=== PATIENT | female | born 1930 | race Caucasian/White ===

== ENCOUNTER 2017-09-04 15:16 | Inpatient (IN) | payer MEDICARE, MEDICAID ==
[~2017-09-04] VITALS: Ht 160 cm; Wt 86.0 kg
--- NOTE | 2017-09-04 15:20 | NUR ---
ESTHELA FROM [facility], C/O PLEURITIC PAIN, CHILLS, WEAKNESS, FEVER 100.3 ORALLY NAD NOTED, VSS, RESP EVEN AND UNLABORED, PT WAS PUT ON MONITOR. WAITING FOR MD MOSES.
[2017-09-04] MEDS ORDERED: ESCI5TAB PO (15:30)
[2017-09-04] MEDS ORDERED: INSU100V7 SQ (15:30)
[2017-09-04] MEDS ORDERED: BLOO-668 IN (15:30)
[2017-09-04] MEDS ORDERED: INSU100V11 SQ (15:30)
[2017-09-04] MEDS ORDERED: SIMV40TA5 PO (15:30)
[2017-09-04] MEDS ORDERED: FAMO20TA8 PO (15:30)
[2017-09-04] MEDS ORDERED: METO25TA6 PO (15:30)
[2017-09-04] MEDS ORDERED: LORA0.5T PO (15:30)
[2017-09-04] MEDS ORDERED: VALS80TA2 PO (15:30)
[2017-09-04] MEDS ORDERED: GLIP5TAB13 PO (15:30)
[2017-09-04] MEDS ORDERED: SPIR25TA6 PO (15:30)
[2017-09-04] MEDS ORDERED: FURO-144 PO (15:30)
[2017-09-04 15:56] LABS: CALCIUM, SERUM 8.9 mg/dL (8.5-10.1); CARBON DIOXIDE 22 mmol/L (21-32); CHLORIDE 105 mmol/L (98-107); CREATININE 2.2 mg/dL (0.6-1.3); GLUCOSE 98 mg/dL (74-106); POTASSIUM 4.6 mmol/L (3.5-5.1); SODIUM SERUM 138 mmol/L (136-145); UREA NITROGEN, BLOOD 30 mg/dL (7-18)
[2017-09-04 16:00] LABS: INR 0.92 (0.85-1.15)
[2017-09-04] MEDS ORDERED: IV NS 0.9% 1,000 ML BAG IV ONE ×2 (16:00→16:30)
[2017-09-04 16:02] LABS: ALANINE AMINOTRANSFERASE 20 U/L (12-78); ALBUMIN 3.4 g/dL (3.4-5.0); ALKALINE PHOSPHATASE 60 U/L (46-116); ASPARTATE AMINOTRANSFERASE 30 U/L (15-37); BILIRUBIN,DIRECT 0.3 mg/dL (0.0-0.2); BILIRUBIN,TOTAL 0.7 mg/dL (0.2-1.0); TOTAL PROTEIN, SERUM 7.3 g/dL (6.4-8.2)
[2017-09-04 16:04] LABS: TROPONIN I < 0.017 ng/mL (0.00-0.056)
[2017-09-04 16:11] LABS: BASOPHILS % (AUTO) 0.3 % (0.0-2.0); EOSINOPHILS % (AUTO) 0.2 % (0.0-6.0); HEMATOCRIT 36 % (33-45); HEMOGLOBIN 12.3 g/dL (11.5-14.8); LYMPHOCYTES # (AUTO) 0.9 /CMM (0.8-4.8); LYMPHOCYTES % (AUTO) 16.7 % (20.0-44.0); MEAN CORPUSCULAR HGB CONC 34 g/dl (31.0-36.0); MEAN CORPUSCULAR VOLUME 91 fL (82-100); MONOCYTES # (AUTO) 0.5 /CMM (0.1-1.30); MONOCYTES % (AUTO) 9.8 % (2.0-12.0); NEUTROPHILS # (AUTO) 3.7 /CMM (1.8-8.9); PLATELET COUNT (AUTO) 73 /CMM (150-450); RDW COEFFICIENT OF VARIATION 15.1 (11.5-15.0); RED BLOOD CELL COUNT(AUTO) 3.96 MIL/uL (4.0-5.2); WHITE BLOOD COUNT (AUTO) 5.1 K/uL (4.3-11.0)
[2017-09-04] MEDS ORDERED: ACETAMINOPHEN ES 500 MG TABLET ONE (16:21)
[2017-09-04] MEDS ORDERED: ACETAMINOPHEN 325 MG TABLET PO ONE (16:30)
--- NOTE | 2017-09-04 17:03 | NUR ---
CALLED [employer] FOR BEDSIDE COMMODE.
[2017-09-04 17:22] LABS: APPEARANCE,URINE Clear (CLEAR); BILIRUBIN,URINE Negative (NEGATIVE); BLOOD, URINE Small Ery/uL (NEGATIVE); COLOR,URINE Yellow (YELLOW); KETONES,URINE Trace (NEGATIVE); LEUKOCYTE ESTERASE ,URINE Trace (NEGATIVE); NITRITE, URINE Negative (NEGATIVE); PROTEIN,URINE 100 mg/dl (NEGATIVE); UGLUCOSE Negative (NEGATIVE); UROBILINOGEN,URINE 0.2 EU/dL (0.2)
--- NOTE | 2017-09-04 17:22 | NUR ---
URINE SENT TO LAB
[2017-09-04 17:35] LABS: BACTERIA,URINE Moderate /HPF (None Seen); SQUAMOUS EPITHELIAL CELL,UR Moderate /HPF (None Seen)
--- NOTE | 2017-09-04 17:39 | NUR ---
FLU SWAB SENT TO LAB
--- NOTE | 2017-09-04 18:00 | NUR ---
FIRE CLAIMS ADJUSTER NOTES PATIENT A/OX4, BREATHING EVEN AND UNLABORED, NOTED WITH NON-PRODUCTIVE COUGH BUT NO SOB. SKIN ASSESSMENT COMPLETED, SKIN DRY AND INTACT, PIV ON LEFT AC #20, PATIENT ABLE TO AMBULATE WITH ASSIST, PATIENT FEELING WEAKER THAN NORMAL, ON TELE MONITOR WHICH SHOWS SINUS RHYTHM 74, PATIENT'S NEEDS ATTENDED AND MET, CALL LIGHT WITHIN REACH, WILL ENDORSE TO MANAGER NUCLEAR FOR DAVID.
[2017-09-04] MEDS ORDERED: MAG HYDROX/AL HYDROX/SIMETH 30 ML UDC PO PRN (18:30)
[2017-09-04] MEDS ORDERED: ACETAMINOPHEN 325 MG TABLET PO PRN (18:30)
[2017-09-04] MEDS ORDERED: HYDROCODONE/APAP 5/325MG 1 EACH TABLET PO PRN (18:30)
[2017-09-04] MEDS ORDERED: DEXTROSE 50%-WATER 50 ML DISP.SYRIN IV PRN (18:30)
[2017-09-04] MEDS ORDERED: CEFTRIAXONE 1 G in IV NS 0.9% 50 ML IV SCH (18:30)
[2017-09-04] MEDS ORDERED: IV 1/2NS 1000 ML 1,000 ML IV SCH (18:30)
[2017-09-04] MEDS ORDERED: MAGNESIUM HYDROXIDE 30 ML UDC PO PRN (18:30)
[2017-09-04] MEDS ORDERED: CEFTRIAXONE 1GM BAG (ER ONLY) 1 GM/50 ML PIGGYBACK IV ONE (18:30)
[2017-09-04] MEDS ORDERED: Z GUARD REMEDY 2 OZ OINT TP PRN (18:30)
[2017-09-04] MEDS ORDERED: ONDANSETRON HCL/PF 4 MG/2 ML VIAL IVP PRN (18:30)
--- NOTE | 2017-09-04 19:23 | NUR ---
RN NOTES INFORMED [place] FOOD SANITARIAN, PATIENT'S PLATELET IS 73, CLARIFIED IF LOVENOX IS TO BE GIVEN, PER FOOD SANITARIAN, DISCONTINUE MEDICATION. PATIENT IS AMBULATORY AND INDEPENDENT WITH BED MOBILITY. ORDER NOTED AND CARRIED OUT.
--- NOTE | 2017-09-04 19:30 | NUR ---
RN NOTES: RECEIVED ASLEEP ON BED ,A/OX3-4,PER ENDORSEMENT PATIENT IS NO LONGER IN TELE, MONITOR REMOVED,IV LINE ON LAC g#20 WITH 0.45%NS ONGOING AT 50ML/HR, LOVENOX WAS DISCONTINUE,AND ROCEPHINE TO BE GIVEN.KEPT RESTED, FALL,SAFETY ANDASPIRATION PRECAUTION OBSERVED, BED LOW AND LOCKED, CALL LIGHT WITHIN EASY REACH.
[2017-09-04 20:00] VITALS: BP 99/52
[2017-09-04] MEDS ORDERED: ENOXAPARIN SODIUM 30 MG/0.3 ML DISP.SYRIN SQ SCH (20:00)
--- NOTE | 2017-09-04 20:10 | NUR ---
RN NOTES: ROCEPHINE DELIVERED FROM PHARMACY, GIVEN AT 1948.PATIENT WAS ASLEEP, KEPT MONITORED, AWAKE IN BETWEEN TO USE THE BATHROOM, SHE CLAIMED"I FEEL MUCH BETTER NOW".
[2017-09-04] MEDS: SIMVASTATIN 40 MG TABLET PO SCH (21:42)
[2017-09-04] MEDS: BLOOD SUGAR DIAGNOSTIC 1 EACH STRIP VI SCH (21:43)
[2017-09-04] MEDS: FAMOTIDINE (20 MG) 20 MG TABLET PO SCH (21:43)
--- NOTE | 2017-09-04 21:51 | NUR ---
RN NOTES: BLOOD SUGAR CHECKED-98,NO INSULIN GIVEN PER SCALE, DUE ORAL MEDS GIVEN,TOLERATED; GO BACK TO SLEEP, KEPT RESPTED, NO SIGN OF SOB OR RESPIRATORY DISTRESS NOTED.
[2017-09-04] MEDS: INSULIN GLARGINE, 100 UNIT/ML CARTRIDGE SQ SCH (22:00)
[2017-09-05] VITALS: BP 111/50
--- NOTE | 2017-09-05 00:47 | NUR ---
RN NOTES: SLEEP WELL IN THE NIGHT, NO PAIN OR DISCOMFORT, NO COUGHING NOTED, V/S CHECKED BP-100/50 SPO2-96% ROOM AIR.KEPT ON CLOSE WATCH.
--- NOTE | 2017-09-05 02:22 | NUR ---
RN NOTES: AWAKE,ASSISTED GOING TO THE BATHROOM, SHE URINATE WELL,NO COMPLAINTS,KEPT COMFORTABLE IN BED.CALL LIGHT WITHIN EASY REACH.
--- NOTE | 2017-09-05 05:55 | NUR ---
RN NOTES: BLOOD SUGAR CHECKED-75, NO INSULIN GIVEN PER SCALE,WILL CONTINUE TO MONITOR FOR SIGN OF HYPER/HYPOGLYCEMIA,OFFERED JUICE, SHE JUST DRINK WATER AND GO BACK TO SLEEP,IVF STILL ONGOING.CALL LIGHTWITHIN EASY REACH.
--- NOTE | 2017-09-05 06:24 | NUR ---
RN NOTES: ASLEEP ON BED,WITH IVF ONGOING, BED LOW AND LOCKED, CALL LIGHT WITHIN EASY REACH,NO SIGN OR RESPIRATORY DEPRESSION.ENDORSED TO MORNING SHIFT FOR CONTINUITY OF CARE.
[2017-09-05 06:49] LABS: BASOPHILS % (AUTO) 0.3 % (0.0-2.0); EOSINOPHILS % (AUTO) 1.7 % (0.0-6.0); HEMATOCRIT 32 % (33-45); HEMOGLOBIN 10.9 g/dL (11.5-14.8); LYMPHOCYTES # (AUTO) 1.2 /CMM (0.8-4.8); LYMPHOCYTES % (AUTO) 24.3 % (20.0-44.0); MEAN CORPUSCULAR HGB CONC 34 g/dl (31.0-36.0); MEAN CORPUSCULAR VOLUME 94 fL (82-100); MONOCYTES # (AUTO) 0.5 /CMM (0.1-1.30); NEUTROPHILS # (AUTO) 3.1 /CMM (1.8-8.9); NEUTROPHILS % (AUTO) 62.7 % (43.0-81.0); PLATELET COUNT (AUTO) 68 /CMM (150-450); RDW COEFFICIENT OF VARIATION 15.2 (11.5-15.0); RED BLOOD CELL COUNT(AUTO) 3.46 MIL/uL (4.0-5.2); WHITE BLOOD COUNT (AUTO) 4.9 K/uL (4.3-11.0)
[2017-09-05] MEDS: BLOOD SUGAR DIAGNOSTIC 1 EACH STRIP VI SCH ×4 (06:50→21:43)
[2017-09-05] MEDS: INSULIN REGULAR, HUMAN 100 UNIT/ML 3 ML VIAL SQ PRN (06:51)
[2017-09-05 06:59] LABS: CALCIUM, SERUM 7.8 mg/dL (8.5-10.1); CARBON DIOXIDE 24 mmol/L (21-32); CHLORIDE 106 mmol/L (98-107); CREATININE 1.9 mg/dL (0.6-1.3); GLUCOSE 69 mg/dL (74-106); MAGNESIUM 2.1 mg/dL (1.8-2.4); PHOSPHORUS 3.2 mg/dL (2.5-4.9); POTASSIUM 4.4 mmol/L (3.5-5.1); SODIUM SERUM 139 mmol/L (136-145); UREA NITROGEN, BLOOD 28 mg/dL (7-18)
[2017-09-05 07:11] LABS: CHOLESTEROL 104 mg/dL (<200); HDL CHOLESTEROL 32 mg/dL (40-60); LDL 59 mg/dL (0-99); TRIGLYCERIDES 112 mg/dL (30-150)
--- NOTE | 2017-09-05 07:30 | NUR ---
RN NOTES: PATIENT RESTING IN BED. NONLABORED BREATHING NOTED ON ROOM AIR. DENYING PAIN AT THE MOMENT. IV SITE ON LEFT AC PATENT AND INTACT. PATIENT AOX4. IV FLUIDS HELD AT THE MOMENT PER LOUIS Chamberlain NP'S NOTES.PATIENT OFFERED APPLE JUICE, IS DRINKING IT AT THE MOMENT. BED IN LOWEST LOCKED POSITION. CALL LIGHT WITHIN REACH.
[2017-09-05 08:00] VITALS: BP 115/55
[2017-09-05 08:34] LABS: EOSINOPHILS % (MANUAL) 3 % (0-4); LYMPHOCYTES % (MANUAL) 29 % (16-48); MONOCYTES % (MANUAL) 11 % (0-11.0); NEUTROPHILS % (MANUAL) 57 (42-76)
[2017-09-05] MEDS: METOPROLOL TARTRATE 25 MG TABLET PO SCH ×2 (09:00→16:48)
[2017-09-05] MEDS ORDERED: SPIRONOLACTONE 25 MG TABLET PO SCH (09:00)
[2017-09-05] MEDS: VALSARTAN 80 MG TABLET PO SCH (09:00)
[2017-09-05] MEDS: PANTOPRAZOLE 40 MG VIAL IV SCH (09:09)
[2017-09-05] MEDS: FUROSEMIDE 40 MG TABLET PO SCH (09:15)
[2017-09-05] MEDS: ESCITALOPRAM OXALATE (10 MG) 10 MG TABLET PO SCH (09:17)
--- NOTE | 2017-09-05 09:20 | NUR ---
PATIENT REFUSING ALDACTONE. STATES THAT SHE WANTS TO ONLY TAKE LASIX. BENEFITS AND RISKS EXPLAINED TO PATIENT.PATIENT STILL REFUSING
[2017-09-05] MEDS ORDERED: FOSFOMYCIN TROMETHAMINE 3 G/PKT PACKET PO ONE (11:00)
[2017-09-05] MEDS: IV NS 0.9% 1,000 ML IV SCH ×2 (11:08→15:40)
--- NOTE | 2017-09-05 11:44 | NUR ---
PATIENT REPORTS BEING ALLERGIC TO MILK AND FISH., UNKNOWN REACTIONS. PER PATIENT, NO ALLERGIC REACTIONS WHEN TAKING METOPROLOL AND LASIX
--- NOTE | 2017-09-05 11:47 | NUR ---
PATIENT DENIES ANY ALLERGIC REACTIONS TO PEPCID
[2017-09-05 12:00] VITALS: BP 104/52
[2017-09-05 16:00] VITALS: BP 120/54
--- NOTE | 2017-09-05 19:37 | NUR ---
RN CLOSING NOTES: PATIENT RESTING IN BED. NONLABORED BREATHING NOTED ON ROOM AIR. DENIES PAIN AT THE MOMENT. IV SITE PATENT AND INTACT WITH CURRENT FLUIDS RUNNING PER ORDERS. COLLECTED STOOL FOR OCCULT STOOL CHECK AND CALLED LAB. BED IN LOWEST LOCKED POSITION. CALL LIGHT WITHIN REACH. ENDORSED TO NEXT SHIFT
--- NOTE | 2017-09-05 19:38 | NUR ---
Patient is alert and pleasant. She resides at the [facility] [phone]. She requires min assist with adl's. Primary source of support are the [facility] staff. Current plan is to return to [facility] Addendum: 09/05/17 at 1939 by PAUL LOU RN Amended: Links added.
--- NOTE | 2017-09-05 19:39 | NUR ---
MS/RN OPENING NOTES PT RECEIVED AWAKE, SITTING UP IN BED. ON ROOM AIR, BREATHING EVEN AND UNLABORED. DENIES SOB OR PAIN AT THIS TIME. IV TO LAC PATENT AND INTACT RUNNING IVF ORDERED, 2ND BAG HANGING (ORDER FOR 2,000ML ONLY). PENDING RESULT FOR LLE DUPLEX. BED IN LOW/LOCKED POSITION WITH CALL LIGHT IN REACH. SIDE RAILS UPX2. WILL CONTINUE TO MONITOR
[2017-09-05 20:00] VITALS: BP 129/68
--- NOTE | 2017-09-05 21:34 | NUR ---
MS/RN NOTES ASSISTED PT TO RESTROOM. IV TO LAC INFILTRATED. RESTARTED IV TO RIGHT HAND #24. FLUSHES WELL. RECONNECTED TO IVF
[2017-09-05] MEDS: SIMVASTATIN 40 MG TABLET PO SCH (21:42)
[2017-09-05] MEDS: FAMOTIDINE (20 MG) 20 MG TABLET PO SCH (21:42)
[2017-09-05] MEDS: INSULIN GLARGINE, 100 UNIT/ML CARTRIDGE SQ SCH (21:50)
[2017-09-05] MEDS: *INSULIN REGULAR(HUMULIN R)HUM 100 UNIT/ML VIAL SQ PRN (21:51)
--- NOTE | 2017-09-05 22:02 | NUR ---
MS/RN NOTES BLOOD [id number]. REFUSING SCHEDULED LANTUS AND REGULAR INSULIN. DIDNT EAT MUCH OF HER DINNER AND HAS NO APPETITE AT THIS TIME.
[2017-09-06 00:07] LABS: OCCULT BLOOD STOOL NEGATIVE (NEGATIVE)
[2017-09-06] MEDS: BLOOD SUGAR DIAGNOSTIC 1 EACH STRIP VI SCH ×4 (06:36→21:06)
[2017-09-06] MEDS: INSULIN REGULAR, HUMAN 100 UNIT/ML 3 ML VIAL SQ PRN ×2 (06:37→11:55)
--- NOTE | 2017-09-06 07:10 | NUR ---
RN NOTES: PATIENT RESTING IN BED. NONLABORED BREATHING NOTED ON ROOM AIR. DENYING PAIN AT THE MOMENT. IV SITE ON RIGHT WRIST PATENT AND INTACT. PATIENT AOX4. BED IN LOWEST LOCKED POSITION. CALL LIGHT WITHIN REACH.
--- NOTE | 2017-09-06 07:40 | NUR ---
MS/RN CLOSING NOTES PT AWAKE, RESTING IN BED. A/OX4. ON ROOM AIR, BREATHING EVEN AND UNLABORED. DENIES PAIN OR SOB AT THIS TIME. IV TO RIGHT HAND PATENT AND INTACT. BLOOD SUGAR THIS AM= 151, PT REFUSED INSULIN. EDUCATION PROVIDED X3, PT STILL REFUSING. DUPLEX FOR LLE NEGATIVE FOR DVT. NO SIGNIFICANT CHANGES OVERNIGHT. KEPT PT COMFORTABLE DURING SHIFT. ALL NEEDS MET. BED IN LOW/LOCKED POSITION WITH CALL LIGHT IN REACH. SIDE RAILS UPX2. ENDORSED TO DAY SHIFT RN DAVID.
[2017-09-06 07:43] LABS: BASOPHILS % (AUTO) 0.3 % (0.0-2.0); EOSINOPHILS % (AUTO) 3.6 % (0.0-6.0); HEMATOCRIT 33 % (33-45); HEMOGLOBIN 11.1 g/dL (11.5-14.8); LYMPHOCYTES # (AUTO) 1.5 /CMM (0.8-4.8); LYMPHOCYTES % (AUTO) 35.2 % (20.0-44.0); MEAN CORPUSCULAR HGB CONC 34 g/dl (31.0-36.0); MEAN CORPUSCULAR VOLUME 92 fL (82-100); MONOCYTES # (AUTO) 0.5 /CMM (0.1-1.30); MONOCYTES % (AUTO) 12.1 % (2.0-12.0); NEUTROPHILS # (AUTO) 2.1 /CMM (1.8-8.9); NEUTROPHILS % (AUTO) 48.8 % (43.0-81.0); PLATELET COUNT (AUTO) 73 /CMM (150-450); RDW COEFFICIENT OF VARIATION 14.3 (11.5-15.0); RED BLOOD CELL COUNT(AUTO) 3.59 MIL/uL (4.0-5.2); WHITE BLOOD COUNT (AUTO) 4.3 K/uL (4.3-11.0)
[2017-09-06 08:00] VITALS: BP 129/52
[2017-09-06 08:36] LABS: CALCIUM, SERUM 7.9 mg/dL (8.5-10.1); CARBON DIOXIDE 18 mmol/L (21-32); CHLORIDE 106 mmol/L (98-107); CREATININE 1.8 mg/dL (0.6-1.3); GLUCOSE 131 mg/dL (74-106); MAGNESIUM 1.9 mg/dL (1.8-2.4); PHOSPHORUS 2.9 mg/dL (2.5-4.9); SODIUM SERUM 138 mmol/L (136-145); UREA NITROGEN, BLOOD 28 mg/dL (7-18)
[2017-09-06] MEDS: METOPROLOL TARTRATE 25 MG TABLET PO SCH ×2 (09:00→17:00)
[2017-09-06] MEDS: VALSARTAN 80 MG TABLET PO SCH (09:00)
[2017-09-06] MEDS: PANTOPRAZOLE 40 MG VIAL IV SCH (09:10)
[2017-09-06] MEDS: ESCITALOPRAM OXALATE (10 MG) 10 MG TABLET PO SCH (09:16)
[2017-09-06] MEDS: FUROSEMIDE 40 MG TABLET PO SCH (09:16)
[2017-09-06 10:44] LABS: BAND % (MANUAL) 2 % (0.0-5.0); EOSINOPHILS % (MANUAL) 4 % (0-4); LYMPHOCYTES % (MANUAL) 31 % (16-48); MONOCYTES % (MANUAL) 11 % (0-11.0); NEUTROPHILS % (MANUAL) 52 (42-76)
--- NOTE | 2017-09-06 17:10 | NUR ---
PATIENT REFUSING INSULIN PER PROTOCOL PRIOR TO DINNER WELL METOPROLOL. BENEFITS AND RISKS EXPLAINED TO PATIENT .PATIENT STILL REFUSING
--- NOTE | 2017-09-06 18:26 | NUR ---
RN CLOSING NOTES: PATIENT RESTING IN BED. NONLABORED BREATHING NOTED ON ROOM AIR. DENIES PAIN AT THE MOMENT. IV SITE PATENT AND INTACT ON RIGHT WRIST. BED IN LOWEST LOCKED POSITION. CALL LIGHT WITHIN REACH. ENDORSED TO NEXT SHIFT. PATIENT STABLE THROUGHOUT SHIFT WITH NO CHANGES. WILL ENDORSE TO NEXT NURSE
--- NOTE | 2017-09-06 19:30 | NUR ---
MS/RN OPENING NOTES PT RECEIVED AWAKE. A/OX4. ON ROOM AIR,BREATHING EVEN AND UNLABORED. DENIES SOB OR PAIN AT THIS TIME. IV TO RIGHT HAND PATENT AND INTACT. ASSISTED TO RESTROOM. ESCORTED BACK TO BED. BED IN LOW/LOCKED POSITION WITH CALL LIGHT IN REACH. SIDE RAILS UPX2. WILL CONTINUE TO MONITOR
[2017-09-06 20:00] VITALS: BP 140/60
[2017-09-06] MEDS: SIMVASTATIN 40 MG TABLET PO SCH (21:06)
[2017-09-06] MEDS: FAMOTIDINE (20 MG) 20 MG TABLET PO SCH (21:07)
[2017-09-06] MEDS: INSULIN GLARGINE, 100 UNIT/ML CARTRIDGE SQ SCH (21:11)
[2017-09-06] MEDS: *INSULIN REGULAR(HUMULIN R)HUM 100 UNIT/ML VIAL SQ PRN (21:14)
--- NOTE | 2017-09-06 21:15 | NUR ---
MS/RN NOTES BLOOD KGOLE=438. WANTS SCHEDULED LANTUS BUT REFUSING REGULAR INSULIN AT THIS TIME. SNACKS PROVIDED AT BEDSIDE. ALSO REFUSING SCHEDULE PEPCID. EDUCATION PROVIDED, STILL REFUSING.
[2017-09-07] MEDS: BLOOD SUGAR DIAGNOSTIC 1 EACH STRIP VI SCH ×2 (06:41→12:37)
[2017-09-07] MEDS: INSULIN REGULAR, HUMAN 100 UNIT/ML 3 ML VIAL SQ PRN ×2 (06:42→12:37)
--- NOTE | 2017-09-07 06:57 | NUR ---
MS/RN CLOSING NOTES PT AWAKE, SITTING UP IN BED. A/OX4. REMAINS ON ROOM AIR, BREATHING EVEN AND UNLABORED. DENIES SOB OR PAIN AT THIS TIME. BLOOD SUGAR THIS AM = 158, 2 UNITS ADMINISTERED PER SLIDING SCALE. TO BE SEEN BY VASCULAR MD TODAY FOR EDEMA TO LLE. POSSIBLE CT PELVIS TO EVALUATE ILIAC VEIN AND COMPRESSION. PT AWARE AND VERBALIZES UNDERSTANDING. NO SIGNIFICANT CHANGES OVERNIGHT. KEPT PT COMFORTABLE DURING SHIFT. IV TO RIGHT HAND PAINFUL, PT REFUSING IV INSERTION AT THIS TIME. EDUCATED BUT PT WANTS TO WAIT UNTIL LATER. BED IN LOW/LOCKED POSITION WITH CALL LIGHT IN REACH. SIDE RAILS UPX2. WILL ENDORSE TO DAY SHIFT RN DAVID.
[2017-09-07 07:10] LABS: CALCIUM, SERUM 8.3 mg/dL (8.5-10.1); CARBON DIOXIDE 20 mmol/L (21-32); CHLORIDE 106 mmol/L (98-107); CREATININE 1.9 mg/dL (0.6-1.3); GLUCOSE 172 mg/dL (74-106); POTASSIUM 3.9 mmol/L (3.5-5.1); SODIUM SERUM 138 mmol/L (136-145); UREA NITROGEN, BLOOD 28 mg/dL (7-18)
[2017-09-07 07:51] LABS: BASOPHILS % (AUTO) 0.3 % (0.0-2.0); HEMATOCRIT 32 % (33-45); LYMPHOCYTES # (AUTO) 1.6 /CMM (0.8-4.8); LYMPHOCYTES % (AUTO) 36.2 % (20.0-44.0); MEAN CORPUSCULAR HGB CONC 34 g/dl (31.0-36.0); MEAN CORPUSCULAR VOLUME 92 fL (82-100); MONOCYTES # (AUTO) 0.4 /CMM (0.1-1.30); MONOCYTES % (AUTO) 9.1 % (2.0-12.0); NEUTROPHILS # (AUTO) 2.2 /CMM (1.8-8.9); NEUTROPHILS % (AUTO) 51.4 % (43.0-81.0); PLATELET COUNT (AUTO) 70 /CMM (150-450); RED BLOOD CELL COUNT(AUTO) 3.47 MIL/uL (4.0-5.2); WHITE BLOOD COUNT (AUTO) 4.3 K/uL (4.3-11.0)
[2017-09-07 08:00] VITALS: BP 126/64
--- NOTE | 2017-09-07 08:00 | NUR ---
MS RN OPENING NOTES Patient was seen sitting upright in bed, AAOx4, breathing comfortably on RA no SOB, no signs of acute distress. Patient's only complaint is LLE edema (generalized, non-pitting); left leg is visibly swollen compared to the right; patient had consult with vascular doctor early this AM, will schedule CT scan today. Peripheral IV is in right hand 24g SL. Bed is low/locked position, two side rails up, call guadalupe within reach. Will continue to monitor.
[2017-09-07] MEDS: PANTOPRAZOLE 40 MG VIAL IV SCH ×2 (08:16→08:38)
[2017-09-07] MEDS: ESCITALOPRAM OXALATE (10 MG) 10 MG TABLET PO SCH ×2 (08:17→08:38)
[2017-09-07] MEDS: VALSARTAN 80 MG TABLET PO SCH (08:17)
[2017-09-07] MEDS: FUROSEMIDE 40 MG TABLET PO SCH (08:17)
[2017-09-07 08:18] VITALS: BP 126/64
[2017-09-07] MEDS: METOPROLOL TARTRATE 25 MG TABLET PO SCH (08:18)
--- NOTE | 2017-09-07 09:00 | NUR ---
MS RN NOTE - Patient refused meds/assessment Patient refused Protonix and Lexapro, therefore neither med was administered. Patient also adamantly refused physical assessment - would not let me listen to heart, lungs, or bowel sounds. Patient was educated on both medications and the purpose of nursing assessments. Patient became agitated and continued to refuse.
[2017-09-07 13:50] LABS: LYMPHOCYTES % (MANUAL) 45 % (16-48)
[2017-09-07 13:51] LABS: EOSINOPHILS % (MANUAL) 3 % (0-4); MONOCYTES % (MANUAL) 9 % (0-11.0); NEUTROPHILS % (MANUAL) 43 (42-76)
--- NOTE | 2017-09-07 15:00 | NUR ---
MS ENTRY LEVEL ELECTRICIAN NOTE Patient discharged to assisted living [facility], [facility]; transferred via ambulance. Patient left in stable condition, vital signs WNL. Peripheral IV in right hand was removed just before discharge. Education and discharge instructions provided to patient, patient verbalized understanding and signed discharge forms. Patient Belonging form signed.
== END 2017-09-07 15:00 | DRG 689 ==
LOC: ER 15:20 → TELE 17:36 → MED 09-05 03:31
PROVIDERS: ADMIT Registered Nurse; ATTEND Registered Nurse
DX: N39.0 Urinary tract infection, site not specified (principal); N17.0 Acute kidney failure with tubular necrosis; D61.818 Other pancytopenia; D69.6 Thrombocytopenia, unspecified; I11.0 Hypertensive heart disease with heart failure; E11.22 Type 2 diabetes mellitus with diabetic chronic kidney disease; I50.9 Heart failure, unspecified; I13.0 Hypertensive heart and chronic kidney disease with heart failure and stage 1 through stage 4 chronic kidney disease, or unspecified chronic kidney disease; Z88.8 Allergy status to other drugs, medicaments and biological substances; E86.0 Dehydration; E66.9 Obesity, unspecified; R60.0 Localized edema; N18.9 Chronic kidney disease, unspecified; K21.9 Gastro-esophageal reflux disease without esophagitis; F41.9 Anxiety disorder, unspecified; F32.9 Major depressive disorder, single episode, unspecified; Z91.041 Radiographic dye allergy status; Z79.4 Long term (current) use of insulin; Z79.84 Long term (current) use of oral hypoglycemic drugs; Z79.899 Other long term (current) drug therapy; B96.89 Other specified bacterial agents as the cause of diseases classified elsewhere; Z68.33 Body mass index [BMI] 33.0-33.9, adult; Z86.718 Personal history of other venous thrombosis and embolism; Z87.891 Personal history of nicotine dependence
CPT/HCPCS: 36415; 71045-TC; 80048-TC; 80061-TC; 80076-TC; 81000-TC; 82272-TC; 82962-TC; 83605-TC; 83735-TC; 83880; 84100-TC; 84484-TC; 85025-TC; 85730-TC; 87040-TC; 87081-TC; 87086-TC; 87400; 93307-TC; 93971-TC; A4216; A4606; C9113; J0696; J1815; J3490; J7030; Z7610

== ENCOUNTER 2019-01-17 12:49 | Inpatient (IN) | payer MEDICARE, OTHER ==
[~2019-01-17] VITALS: Ht 157.5 cm; Wt 67.1 kg
[~2019-01-17 12:49] MED LIST: BLOO-668 IN; ESCI5TAB PO; FAMO20TA8 PO; FURO-144 PO; GLIP5TAB13 PO; INSU100V11 SQ; INSU100V7 SQ; LORA0.5T PO; METO25TA6 PO; SIMV40TA5 PO; VALS80TA2 PO
[2019-01-17] MEDS ORDERED: FUROSEMIDE 20 MG/2 ML VIAL ONE (13:07)
--- NOTE | 2019-01-17 13:15 | NUR ---
bb private ems - sent from [facility], sent for r/o dvt, pt SOB. connected to the monitor and pulse ox. Kept comfortable, will continue to monitor accordingly.
[2019-01-17 13:27] LABS: BASOPHILS % (AUTO) 0.9 % (0.0-2.0); EOSINOPHILS % (AUTO) 2.7 % (0.0-6.0); HEMATOCRIT 36 % (33-45); HEMOGLOBIN 11.5 g/dL (11.5-14.8); LYMPHOCYTES # (AUTO) 1.2 /CMM (0.8-4.8); LYMPHOCYTES % (AUTO) 29.7 % (20.0-44.0); MEAN CORPUSCULAR HGB CONC 32 g/dl (31.0-36.0); MEAN CORPUSCULAR VOLUME 103 fL (82-100); MONOCYTES # (AUTO) 0.3 /CMM (0.1-1.30); MONOCYTES % (AUTO) 6.8 % (2.0-12.0); NEUTROPHILS # (AUTO) 2.5 /CMM (1.8-8.9); NEUTROPHILS % (AUTO) 59.9 % (43.0-81.0); PLATELET COUNT (AUTO) 75 /CMM (150-450); RED BLOOD CELL COUNT(AUTO) 3.48 MIL/uL (4.0-5.2); WHITE BLOOD COUNT (AUTO) 4.1 K/uL (4.3-11.0)
[2019-01-17] MEDS ORDERED: FUROSEMIDE 40 MG/4 ML VIAL IV ONE (13:30)
[2019-01-17 13:38] LABS: CARBON DIOXIDE 19 mmol/L (21-32); CHLORIDE 112 mmol/L (98-107); CREATININE 1.7 mg/dL (0.6-1.3); GLUCOSE 129 mg/dL (74-106); POTASSIUM 4.2 mmol/L (3.5-5.1); SODIUM SERUM 142 mmol/L (136-145); UREA NITROGEN, BLOOD 38 mg/dL (7-18)
[2019-01-17 13:47] LABS: B-TYPE NATRIURETIC PEPTIDE 15398 PG/ML (0-125)
[2019-01-17 14:01] LABS: ALANINE AMINOTRANSFERASE 13 U/L (12-78); ALBUMIN 3.3 g/dL (3.4-5.0); ALKALINE PHOSPHATASE 113 U/L (46-116); ASPARTATE AMINOTRANSFERASE 22 U/L (15-37); BILIRUBIN,DIRECT 0.2 mg/dL (0.0-0.2); BILIRUBIN,TOTAL 0.6 mg/dL (0.2-1.0); TOTAL PROTEIN, SERUM 6.6 g/dL (6.4-8.2)
[2019-01-17 14:04] LABS: EOSINOPHILS % (MANUAL) 1 % (0-4); LYMPHOCYTES % (MANUAL) 33 % (16-48); MONOCYTES % (MANUAL) 4 % (0-11.0); NEUTROPHILS % (MANUAL) 62 (42-76)
--- NOTE | 2019-01-17 14:10 | NUR ---
CALLED FOR TELE BED
[2019-01-17] MEDS ORDERED: ACET-73 PO (14:25)
[2019-01-17] MEDS ORDERED: ASPI-605 PO (14:25)
[2019-01-17] MEDS ORDERED: CLOP75TA15 PO (14:25)
[2019-01-17] MEDS ORDERED: CRAN450C PO (14:25)
[2019-01-17] MEDS ORDERED: CYAN-51 PO (14:25)
[2019-01-17] MEDS ORDERED: PANT40TA4 PO (14:25)
[2019-01-17] MEDS ORDERED: SACU1TAB PO (14:25)
--- NOTE | 2019-01-17 15:16 | NUR ---
report given to leo RAYA for brandon.
--- NOTE | 2019-01-17 16:01 | NUR ---
wheeled patient via gurney in no apparent distress noted.
--- NOTE | 2019-01-17 16:25 | NUR ---
INNOVATIONS PARAPROFESSIONAL NOTES RECEIVED PATIENT FROM ER FEMALE A/O X4, ON TELE DX OF CHF. PATIENT HAS NO ACUTE RESPIRATORY DISTRESS, UNLABORED. STELE MONITOR ON SR-77,PATIENT ON O2-2L NC, WAS COMPLAINING OF CHRONIC PAIN 9/10 ON LEFT ARM PER PAIN SCALE. SKIN ASSESSMENT DONE EDEMA BLE WITH DISCOLORATION, PICTURE TAKEN. PATIENT USING BEDSIDE COMMODE, CONTINENT. BELONGING AND CONTRABAND CHECKED. NEEDS ATTENDED AND ANTICIPATED. Dr COLIN AWARE OF NEW PATIENT AND MEDICATION. CALL LIGHT WITHIN TO REACH, SAFETY PRECAUTION MAINTAINED ALL THE TIME.
[2019-01-17 16:42] VITALS: BP 131/70
[2019-01-17] MEDS ORDERED: HYDROCODONE/APAP 5/325MG 1 EACH TABLET PO PRN ×2 (17:30→18:00)
[2019-01-17] MEDS ORDERED: ACETAMINOPHEN 325 MG TABLET PO PRN (17:30)
[2019-01-17] MEDS ORDERED: ONDANSETRON HCL/PF 4 MG/2 ML VIAL IVP PRN (17:30)
[2019-01-17] MEDS ORDERED: Z GUARD REMEDY 2 OZ OINT TP PRN (17:30)
[2019-01-17] MEDS ORDERED: ENOXAPARIN SODIUM 40 MG/0.4 ML DISP.SYRIN SQ SCH (17:30)
[2019-01-17] MEDS ORDERED: MAGNESIUM HYDROXIDE 30 ML UDC PO PRN (17:30)
[2019-01-17] MEDS ORDERED: ACETAMINOPHEN ES 500 MG TABLET PO PRN (17:30)
[2019-01-17] MEDS ORDERED: MAG HYDROX/AL HYDROX/SIMETH 30 ML UDC PO PRN (17:30)
[2019-01-17] MEDS ORDERED: DEXTROSE 50%-WATER 50 ML DISP.SYRIN IV PRN (17:30)
[2019-01-17] MEDS: BLOOD SUGAR DIAGNOSTIC 1 EACH STRIP VI SCH ×2 (17:50→22:02)
--- NOTE | 2019-01-17 17:55 | NUR ---
rn notes bs-96 mg/dl no coverage given, administered tylenol 650 mg po prn per patient request left arm pain 01/25, patient eating dinner, call light within to reach, continued monitoring.
--- NOTE | 2019-01-17 18:40 | NUR ---
RN NOTES MEDICATION WERE ADMINISTERED FOR PAIN EFFECTIVE, CALL LIGHT WITHIN TO REACH. ENDORSED ONCOMING NURSE FOLLOW PLAN OF CARE.
--- NOTE | 2019-01-17 19:20 | NUR ---
TELE/RN OPENING NOTES PT RECEIVED AWAKE, RESTING COMFORTABLY IN BED. A/OX3. ON 2LPM O2 VIA NC, BREATHING EVEN AND UNLABORED. NOTES SOME SOB BUT HAS IMPROVED WITH THE LASIX. IV TO RAC PATENT AND INTACT. NO NEEDS EXPRESSED AT THIS TIME. BED IN LOW/LOCKED POSITION WITH CALL LIGHT IN REACH. BILAT. UPPER SIDE RAILS IN PLACE AND BED ALARM ON FOR SAFETY. ON TELE MONITOR SHOWING SR WITH BBB 83. WILL CONTINUE TO MONITOR
[2019-01-17 20:00] VITALS: BP 117/68
[2019-01-17] MEDS: SIMVASTATIN 20 MG TABLET PO SCH (22:00)
[2019-01-17] MEDS: INSULIN REGULAR, HUMAN 100 UNIT/ML 3 ML VIAL SQ PRN (22:04)
--- NOTE | 2019-01-17 22:05 | NUR ---
TELE/RN NOTES PT REFUSED SCHEDULED ZOCOR DESPITE EDUCATION ON RISKS/BENEFITS X3.
[2019-01-18] VITALS: BP 104/49
[2019-01-18 04:00] VITALS: BP 108/57
[2019-01-18] MEDS: BLOOD SUGAR DIAGNOSTIC 1 EACH STRIP VI SCH ×4 (06:32→21:40)
[2019-01-18] MEDS: INSULIN REGULAR, HUMAN 100 UNIT/ML 3 ML VIAL SQ PRN ×2 (06:33→12:38)
--- NOTE | 2019-01-18 06:50 | NUR ---
TELE/RN CLOSING NOTES PT ASLEEP, RESPONSIVE TO NAME. A/OX3. ON 2LPM O2 VIA NC, BREATHING EVEN AND UNLABORED. ON TELE MONITOR SHOWING SR WITH PVC AND BB HR 77. PT UNABLE TO LAY FLAT IN HOB DUE TO SOB. HOB ELEVATED. IV TO RAC PATENT AND INTACT. NO SIGNIFICANT CHANGES OVERNIGHT. ALL NEEDS MET AND ATTENDED. BED IN LOW/LOCKED POSITION WITH CALL LIGHT IN REACH. BILAT. UPPER SIDE RAILS IN PLACE. WILL ENDORSE TO DAY SHIFT RN DAVID.
[2019-01-18 07:48] LABS: BASOPHILS % (AUTO) 0.6 % (0.0-2.0); HEMATOCRIT 31 % (33-45); HEMOGLOBIN 10.3 g/dL (11.5-14.8); LYMPHOCYTES # (AUTO) 1.1 /CMM (0.8-4.8); LYMPHOCYTES % (AUTO) 30.8 % (20.0-44.0); MEAN CORPUSCULAR HGB CONC 33 g/dl (31.0-36.0); MEAN CORPUSCULAR VOLUME 102 fL (82-100); MONOCYTES # (AUTO) 0.3 /CMM (0.1-1.30); NEUTROPHILS % (AUTO) 56.6 % (43.0-81.0); PLATELET COUNT (AUTO) 54 /CMM (150-450); RED BLOOD CELL COUNT(AUTO) 3.07 MIL/uL (4.0-5.2); WHITE BLOOD COUNT (AUTO) 3.6 K/uL (4.3-11.0)
[2019-01-18 08:00] VITALS: BP 121/65
[2019-01-18 08:00] LABS: CALCIUM, SERUM 8.6 mg/dL (8.5-10.1); CARBON DIOXIDE 20 mmol/L (21-32); CHLORIDE 112 mmol/L (98-107); CHOLESTEROL 118 mg/dL (<200); CREATININE 1.7 mg/dL (0.6-1.3); GLUCOSE 110 mg/dL (74-106); HDL CHOLESTEROL 57 mg/dL (40-60); LDL 54 mg/dL (0-99); MAGNESIUM 1.6 mg/dL (1.8-2.4); PHOSPHORUS 3.7 mg/dL (2.5-4.9); POTASSIUM 3.9 mmol/L (3.5-5.1); SODIUM SERUM 143 mmol/L (136-145); TRIGLYCERIDES 55 mg/dL (30-150); UREA NITROGEN, BLOOD 36 mg/dL (7-18)
--- NOTE | 2019-01-18 08:00 | NUR ---
MS RN RECEIVED ON BED, AWAKE,ALERT,ORIENTED X4, NOT IN ANY FORM OF DISTRESS, RESPIRATIONS EVEN AND UNLABORED,NO SOB NOTED, LUNGS ARE CLEAR,ABDOMEN SOFT, POSITIVE BOWEL SOUNDS, DENIES PAIN AT THIS TIME.WILL MONITOR PATIENTS CONDITION.
--- NOTE | 2019-01-18 08:52 | NUR ---
MS RN WAS SEEN BY DR. ARYA Torres/ ORDERS MADE AND CARRIED OUT.
[2019-01-18] MEDS ORDERED: Medication Not On Formulary EA (Cranberry Fruit Concentrate (Cranberry) 450 MG) PO SCH (09:00)
[2019-01-18] MEDS ORDERED: FUROSEMIDE 40 MG/4 ML VIAL IV SCH (09:00)
[2019-01-18] MEDS: CYANOCOBALAMIN 500 MCG TABLET PO SCH ×2 (09:00→09:24)
[2019-01-18] MEDS: PANTOPRAZOLE 40 MG TABLET.DR PO SCH ×2 (09:00→09:24)
--- NOTE | 2019-01-18 09:00 | NUR ---
MS RAYA BREAKFAST SERVED,DUE MEDS GIVEN,TOLERATED WELL.
[2019-01-18 09:21] LABS: THYROID STIMULATING HORMONE 2.58 uIU/mL (0.358-3.74)
[2019-01-18] MEDS: POTASSIUM CHLORIDE 20 MEQ TAB.PRT.SR PO SCH ×3 (09:23→12:27)
[2019-01-18] MEDS: CLOPIDOGREL BISULFATE 75 MG TABLET PO SCH (09:23)
[2019-01-18] MEDS: ASPIRIN EC 81 MG TABLET.DR PO SCH (09:24)
[2019-01-18] MEDS: Magnesium 1GM/D5W 100ML PREMIX 100 ML IV SCH ×2 (09:24→11:06)
[2019-01-18] MEDS: FUROSEMIDE 100 MG/10 ML VIAL IV SCH ×3 (09:27→17:00)
[2019-01-18 09:58] LABS: EOSINOPHILS % (MANUAL) 1 % (0-4); LYMPHOCYTES % (MANUAL) 36 % (16-48); MONOCYTES % (MANUAL) 8 % (0-11.0); NEUTROPHILS % (MANUAL) 55 (42-76)
--- NOTE | 2019-01-18 16:00 | NUR ---
MS RN ON BED, NO DISTRESS NOTED.
[2019-01-18 16:28] VITALS: BP 147/85
--- NOTE | 2019-01-18 17:10 | NUR ---
MS RAYA BLOOD SUGAR - 119 - NO COVERAGE GIVEN.
--- NOTE | 2019-01-18 17:51 | NUR ---
MS RN ON BED, NO DISTRESS NOTED,ALL NEEDS ATTENDED.
[2019-01-18] MEDS ORDERED: FUROSEMIDE 100 MG/10 ML VIAL IV SCH (19:00)
[2019-01-18 20:00] VITALS: BP 114/60
--- NOTE | 2019-01-18 20:00 | NUR ---
TELE/RN NOTES PATIENT SITTING IN CHAIR, ABLE TO TRANSFER SELF TO BEDSIDE COMMODE. ALERT, ORIENTED X3 ABLE TO VERBALIZE NEEDS, URINE SAMPLE COLLECTED, LAB WAS INFORMED. RESPIRATIONS EVEN AND UNLABORED, DENIES PAIN. BED LOCKED, CALL LIGHTS WITHIN REACH, DISCUSSED PLAN OF CARE, INSTRUCT TO CALL FOR ASSISTANCE, TO CHECK AND MONITOR AND ADMINISTER MEDICATION FOR TONIGHT. OFFERED FLUIDS RECEIVED ENDORSEMENT RJ PACKER RN FOR DAVID.
[2019-01-18 21:38] LABS: APPEARANCE,URINE CLEAR (CLEAR); BILIRUBIN,URINE NEGATIVE (NEGATIVE); BLOOD, URINE NEGATIVE Ery/uL (NEGATIVE); COLOR,URINE YELLOW (YELLOW); KETONES,URINE NEGATIVE (NEGATIVE); LEUKOCYTE ESTERASE ,URINE TRACE (NEGATIVE); NITRITE, URINE NEGATIVE (NEGATIVE); PROTEIN,URINE NEGATIVE (NEGATIVE); UGLUCOSE NEGATIVE (NEGATIVE); UROBILINOGEN,URINE 0.2 EU/dL (0.2)
[2019-01-18] MEDS: SIMVASTATIN 20 MG TABLET PO SCH (21:40)
[2019-01-18 22:02] LABS: BACTERIA,URINE 1+ /HPF (None Seen); RBC,URINE 0-2 /HPF (0-2); SQUAMOUS EPITHELIAL CELL,UR 0-2 /HPF (None Seen)
[2019-01-18 22:06] LABS: EOSINOPHIL,URINE None Seen
[2019-01-18 22:17] LABS: CREATININE, URINE < 13.0 MG/DL (30.0-125.0); URINE SODIUM, RANDOM 135 mmol/l (40-220); URINE TOTAL PROTEIN 1.5 mg/dL (0-11.9)
[2019-01-19] VITALS: BP 113/56
[2019-01-19 04:00] VITALS: BP 104/59
[2019-01-19] MEDS: BLOOD SUGAR DIAGNOSTIC 1 EACH STRIP VI SCH ×4 (05:52→21:32)
[2019-01-19 06:15] LABS: BASOPHILS % (AUTO) 0.3 % (0.0-2.0); EOSINOPHILS % (AUTO) 3.3 % (0.0-6.0); HEMATOCRIT 33 % (33-45); HEMOGLOBIN 10.9 g/dL (11.5-14.8); LYMPHOCYTES # (AUTO) 1.3 /CMM (0.8-4.8); LYMPHOCYTES % (AUTO) 34.4 % (20.0-44.0); MEAN CORPUSCULAR HGB CONC 33 g/dl (31.0-36.0); MEAN CORPUSCULAR VOLUME 100 fL (82-100); MONOCYTES # (AUTO) 0.4 /CMM (0.1-1.30); MONOCYTES % (AUTO) 10.3 % (2.0-12.0); NEUTROPHILS % (AUTO) 51.7 % (43.0-81.0); PLATELET COUNT (AUTO) 55 /CMM (150-450); RED BLOOD CELL COUNT(AUTO) 3.28 MIL/uL (4.0-5.2); WHITE BLOOD COUNT (AUTO) 3.8 K/uL (4.3-11.0)
[2019-01-19 06:26] LABS: ALANINE AMINOTRANSFERASE 7 U/L (12-78); ALBUMIN 2.7 g/dL (3.4-5.0); ALKALINE PHOSPHATASE 90 U/L (46-116); ASPARTATE AMINOTRANSFERASE 15 U/L (15-37); BILIRUBIN,TOTAL 0.6 mg/dL (0.2-1.0); CALCIUM, SERUM 8.5 mg/dL (8.5-10.1); CARBON DIOXIDE 24 mmol/L (21-32); CHLORIDE 107 mmol/L (98-107); CREATININE 1.7 mg/dL (0.6-1.3); GLUCOSE 115 mg/dL (74-106); MAGNESIUM 1.9 mg/dL (1.8-2.4); PHOSPHORUS 3.3 mg/dL (2.5-4.9); POTASSIUM 3.9 mmol/L (3.5-5.1); SODIUM SERUM 141 mmol/L (136-145); TOTAL PROTEIN, SERUM 5.7 g/dL (6.4-8.2); UREA NITROGEN, BLOOD 36 mg/dL (7-18)
--- NOTE | 2019-01-19 06:53 | NUR ---
TELE/RN CLOSING NOTES PATIENT RESTING IN BED, RESPIRATIONS EVEN AND UNLABORED ON 2LITER OXYGEN VIA NC, ALERT,ORIENTED X3, COOPERATIVE AND COMPLIANT TO CARE, ABLE TO VERALIZE NEEDS, DENIES PAIN,, MONITORED FOR ANY CHANGES. BED LOCKED, CALL LIGHTS WITHIN REACH, WILL MONITOR. BED LOCKED. WILL ENDORSE TO AM RN FOR DAVID.
--- NOTE | 2019-01-19 07:30 | NUR ---
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 KOENIG.
--- NOTE | 2019-01-19 07:45 | NUR ---
URINALYSIS TECHNICIAN OPENING NOTES RECEIVED PATIENT IN BED, ALERT AND AWAKE ORIENTED X4. NO SOB. DENIES ANY C/O PAIN NOR DISCOMFORT AT THIS TIME. HOB ELEVATED. ABLE TO USE BEDSIDE COMMODE WITHOUT DIFFICULTY. RAC # 18 SL INTACT AND PATENT. BED IN LOWEST, LOCKED. BED SIDERAILS UP X2. CALL LIGHT WITHIN REACH.
[2019-01-19 08:27] VITALS: BP 95/57
[2019-01-19 08:41] LABS: EOSINOPHILS % (MANUAL) 3 % (0-4); LYMPHOCYTES % (MANUAL) 30 % (16-48); MONOCYTES % (MANUAL) 9 % (0-11.0); NEUTROPHILS % (MANUAL) 58 (42-76)
[2019-01-19] MEDS: CARVEDILOL 6.25 MG TABLET PO SCH ×2 (09:00→21:00)
[2019-01-19 09:07] LABS: CREATINE KINASE, TOTAL 35 U/L (26-192)
[2019-01-19] MEDS: CLOPIDOGREL BISULFATE 75 MG TABLET PO SCH (09:21)
[2019-01-19] MEDS: FUROSEMIDE 100 MG/10 ML VIAL IV SCH ×3 (09:22→16:56)
[2019-01-19] MEDS: ASPIRIN EC 81 MG TABLET.DR PO SCH (09:22)
--- NOTE | 2019-01-19 11:00 | NUR ---
MS RN NOTES RECEIVED MEDICAL RECORDS FORM [facility]. FILED IN CHART.
[2019-01-19] MEDS: INSULIN REGULAR, HUMAN 100 UNIT/ML 3 ML VIAL SQ PRN ×2 (11:59→17:40)
--- NOTE | 2019-01-19 12:50 | NUR ---
MS RN NOTES RECEIVED CALL FROM [facility] RE: MEDICATION ENTRASTA NOT AVAILABLE. CALLED [facility] IN [place] AND SPOKE TO JEFF. PER JEFF PATIENT RECEIVES ENTRASTA 26 MG PO BID AND NO ONE IS AVAILABLE TO SEND MEDICATION TO [facility]. NOTIFIED HOLLAND FROM PHARMACY, PER HOLLAND WILL SEND SHOE DRESSER TO PATTERN SHOP SUPERVISOR MEDICATION AT [facility]. NOTIFIED JEFF AT [facility] THAT SHOE DRESSER FROM [facility] WILL PATTERN SHOP SUPERVISOR MED.
[2019-01-19 16:00] VITALS: BP 99/52
--- NOTE | 2019-01-19 19:00 | NUR ---
RN medsurg opening notes Received Pt from morning nurse. Pt is resting in bed comfortably watching TV. Pt is alert and oriented X3. Respiration is normal in room air. No SOB. No nausea or vomiting. Pt denies any pain or discomfort at this time. IV sites at right wrist # 22 is clean, intact, patent and SL. Instructed to call. Safety precautions is maintained. Bed at low position, brakes locked, side rails upX2 and call light is within reach. Will continue to monitor and assist all needs.
--- NOTE | 2019-01-19 19:14 | NUR ---
MS RN CLOSING NOTES PATIENT RESTING COMFORTABLY IN BED, ALERT AND AWAKE ORIENTED X3. DENIES ANY C/O PAIN NOR DISCOMFORT. DENIES ANY C/O OF SOB UPON EXERTION/ACTIVITY. AMBULATES WITH CANE WITH UNSTEADY GAIT REQUIRING SUPERVISION TO MINIMAL ASSISTANCE. USES BEDSIDE COMMODE WITHOUT DIFFICULTY. RIGHT HAND #22 INTACT AND PATENT. BED IN LOWEST POSITION, LOCKED. BED SIDERAILS UPX2. CALL LIGHT WITHIN REACH. IN NO APPARENT DISTRESS.
[2019-01-19 20:00] VITALS: BP 106/58
--- NOTE | 2019-01-19 20:00 | NUR ---
RN medsurg notes Per RT, Pt refused a breathing treatment.
[2019-01-19 21:06] VITALS: BP 99/51
--- NOTE | 2019-01-19 21:11 | NUR ---
RN medsurg noted Hold Coreg 6.25 mg/1 tab/PO because Pt's BP 99/51, pulse 78. Educate Pt about BP. Pt verbalized understanding. Will continue to monitor.
[2019-01-19] MEDS: SIMVASTATIN 20 MG TABLET PO SCH (21:26)
--- NOTE | 2019-01-19 21:30 | NUR ---
RN medsurg notes Hold regular insulin because Pt blood glucose is 121. Educate Pt about s/s hypoglycemia and hyperglycemia. Pt verbalize understanding. Will continue to monitor.
[2019-01-19] MEDS: *INSULIN REGULAR(HUMULIN R)HUM 100 UNIT/ML VIAL SQ PRN (21:57)
[2019-01-20 06:23] LABS: BASOPHILS % (AUTO) 0.4 % (0.0-2.0); EOSINOPHILS % (AUTO) 3.3 % (0.0-6.0); HEMATOCRIT 36 % (33-45); HEMOGLOBIN 11.8 g/dL (11.5-14.8); LYMPHOCYTES # (AUTO) 1.3 /CMM (0.8-4.8); LYMPHOCYTES % (AUTO) 29.7 % (20.0-44.0); MEAN CORPUSCULAR HGB CONC 33 g/dl (31.0-36.0); MEAN CORPUSCULAR VOLUME 100 fL (82-100); MONOCYTES # (AUTO) 0.5 /CMM (0.1-1.30); MONOCYTES % (AUTO) 10.4 % (2.0-12.0); NEUTROPHILS # (AUTO) 2.5 /CMM (1.8-8.9); NEUTROPHILS % (AUTO) 56.2 % (43.0-81.0); PLATELET COUNT (AUTO) 63 /CMM (150-450); RED BLOOD CELL COUNT(AUTO) 3.55 MIL/uL (4.0-5.2); WHITE BLOOD COUNT (AUTO) 4.4 K/uL (4.3-11.0)
--- NOTE | 2019-01-20 06:40 | NUR ---
RN medsurg closing notes Pt is resting in bed comfortably. Awaken easily. Respiration is normal in room air. No SOB. Pt denies any pain or discomfort at this time. IV sites at right wrist is clean, intact, patent and SL. Routine meds were given as ordered. VS is stable. All needs met. Kept Pt warm, comfortable, clean and dry. Instructed to call. Safety precautions is maintained. Bed at low position, brakes locked, side rails upX2 and call light is within reach. Will endorse to morning nurse for DAVID.
[2019-01-20 06:46] LABS: ALANINE AMINOTRANSFERASE 8 U/L (12-78); ALBUMIN 2.9 g/dL (3.4-5.0); ALKALINE PHOSPHATASE 99 U/L (46-116); ASPARTATE AMINOTRANSFERASE 13 U/L (15-37); BILIRUBIN,TOTAL 0.5 mg/dL (0.2-1.0); CALCIUM, SERUM 8.6 mg/dL (8.5-10.1); CARBON DIOXIDE 29 mmol/L (21-32); CHLORIDE 102 mmol/L (98-107); GLUCOSE 122 mg/dL (74-106); MAGNESIUM 1.8 mg/dL (1.8-2.4); PHOSPHORUS 4.2 mg/dL (2.5-4.9); POTASSIUM 3.9 mmol/L (3.5-5.1); SODIUM SERUM 139 mmol/L (136-145); TOTAL PROTEIN, SERUM 6.1 g/dL (6.4-8.2); UREA NITROGEN, BLOOD 39 mg/dL (7-18)
[2019-01-20] MEDS: BLOOD SUGAR DIAGNOSTIC 1 EACH STRIP VI SCH ×4 (07:24→21:36)
[2019-01-20] MEDS: INSULIN REGULAR, HUMAN 100 UNIT/ML 3 ML VIAL SQ PRN ×3 (07:26→17:18)
--- NOTE | 2019-01-20 07:26 | NUR ---
RN medsurg notes No insulin coverage was given because Pt blood glucose in AM is 117. Will endorse to morning nurse
--- NOTE | 2019-01-20 07:37 | NUR ---
MS RN OPENING NOTES RECEIVED PATIENT IN BED ALERT AND ORIENTED X3. HOB ELEVATED. NO SOB. DENIES ANY C/O PAIN NOR DISCOMFORT. PER PATIENT SLEPT WELL LAST NIGHT AND MORE RESTED TODAY. RIGHT WRIST SL #22 INTACT AND PATENT. PATIENT SEEN BY DR. MCKEON. PER DR. MCKEON, HE SPOKE TO PATIENT ABOUT LIFE VEST AND PATIENT DID NOT WANT TO DO IT. SPOKE TO PATIENT, PT STATED, "I'M TOO OLD." BED IN LOWEST POSITION, LOCKED. BED SIDERAILS UPX2. CALL LIGHT WITHIN REACH.
[2019-01-20 08:00] VITALS: BP 109/55
[2019-01-20 08:07] LABS: *SPE A/G RATIO 1.1 (0.7-1.7); *SPE ALBUMIN 2.9 g/dL (2.9-4.4); *SPE ALPHA-1-GLOBULIN 0.2 g/dL (0.0-0.4); *SPE ALPHA-2-GLOBULIN 0.6 g/dL (0.4-1.0); *SPE BETA GLOBULIN 0.8 g/dL (0.7-1.3); *SPE GLOBULIN, TOTAL 2.6 g/dL (2.2-3.9); *SPE M-SPIKE Not Observed g/dL (Not Observed); *SPEGAMMA GLOBULIN 0.8 g/dL (0.4-1.8)
[2019-01-20 08:21] LABS: EOSINOPHILS % (MANUAL) 5 % (0-4); LYMPHOCYTES % (MANUAL) 35 % (16-48); MONOCYTES % (MANUAL) 7 % (0-11.0); NEUTROPHILS % (MANUAL) 53 (42-76)
[2019-01-20] MEDS: CLOPIDOGREL BISULFATE 75 MG TABLET PO SCH (08:56)
[2019-01-20] MEDS: ASPIRIN EC 81 MG TABLET.DR PO SCH (08:56)
[2019-01-20] MEDS: CARVEDILOL 6.25 MG TABLET PO SCH ×2 (08:56→20:40)
[2019-01-20] MEDS: ENTRESTO PO SCH ×2 (08:57→16:41)
[2019-01-20 14:07] LABS: PTH, INTACT 47 pg/mL (15-65)
[2019-01-20 16:00] VITALS: BP 90/58
--- NOTE | 2019-01-20 16:42 | NUR ---
MS RN NOTES HELD [facility] B[facility]P /
--- NOTE | 2019-01-20 18:47 | NUR ---
MS RN CLOSING NOTES PATIENT IN BED ALERT AND ORIENTED X3 WATCHING TV. HOB ELEVATED. NO S/S OF RESPIRATORY DISTRESS. DENIES ANY C/O PAIN NOR DISCOMFORT. RIGHT WRIST SL #22 INTACT AND PATENT. BED IN LOWEST POSITION, LOCKED. CALL LIGHT WITHIN REACH. IN NO APPARENT DISTRESS.
--- NOTE | 2019-01-20 19:56 | NUR ---
RN MS OPENING NOTES RECEIVED PATIENT IN BED AWAKE, ALERT AND ORIENTED X3, VERBALLY RESPONSIVE, ABLE TO MAKE NEEDS KNOWN, BREATHING EVEN AND UNLABORED. NO SOB NOTED. ON ROOM AIR. DENIES PAIN OR DISCOMFORT. DENIES CP. DENIES N/V. IV ON RIGHT WRIST INTACT AND PATENT. SKIN DRY AND WARM TO TOUCH. AFEBRILE. ALL OTHER NEEDS ATTENDED TO. SAFETY MEASURES IN PLACE. CALL LIGHT WITHIN REACH. WILL CONTINUE TO MONITOR.
[2019-01-20 20:00] VITALS: BP 92/47
[2019-01-20] MEDS: SIMVASTATIN 20 MG TABLET PO SCH (21:36)
[2019-01-20] MEDS: *INSULIN REGULAR(HUMULIN R)HUM 100 UNIT/ML VIAL SQ PRN (21:36)
[2019-01-21] MEDS: BLOOD SUGAR DIAGNOSTIC 1 EACH STRIP VI SCH ×3 (06:31→17:40)
[2019-01-21] MEDS: INSULIN REGULAR, HUMAN 100 UNIT/ML 3 ML VIAL SQ PRN (06:32)
--- NOTE | 2019-01-21 06:48 | NUR ---
RN MS CLOSING NOTES PATIENT RESTING IN BED. NO ACUTE CHANGES OVER NIGHT. BREATHING EVEN AND UNLABORED. NO SOB NOTED. ON ROOM AIR. DENIES PAIN OR DISCOMFORT. DENIES CP. DENIES N/V. IV ON RIGHT WRIST INTACT AND PATENT. ALL NEEDS ATTENDED TO. SAFETY MEASURES IN PLACE. CALL LIGHT WITHIN REACH. WILL ENDORSE TO ONCOMING NURSE FOR DAVID.
[2019-01-21 07:48] LABS: BASOPHILS % (AUTO) 0.8 % (0.0-2.0); EOSINOPHILS % (AUTO) 4.3 % (0.0-6.0); HEMATOCRIT 33 % (33-45); HEMOGLOBIN 10.8 g/dL (11.5-14.8); LYMPHOCYTES # (AUTO) 1.4 /CMM (0.8-4.8); LYMPHOCYTES % (AUTO) 36.5 % (20.0-44.0); MEAN CORPUSCULAR HGB CONC 33 g/dl (31.0-36.0); MEAN CORPUSCULAR VOLUME 100 fL (82-100); MONOCYTES # (AUTO) 0.4 /CMM (0.1-1.30); MONOCYTES % (AUTO) 9.2 % (2.0-12.0); NEUTROPHILS # (AUTO) 1.9 /CMM (1.8-8.9); NEUTROPHILS % (AUTO) 49.2 % (43.0-81.0); PLATELET COUNT (AUTO) 56 /CMM (150-450); RED BLOOD CELL COUNT(AUTO) 3.28 MIL/uL (4.0-5.2); WHITE BLOOD COUNT (AUTO) 3.8 K/uL (4.3-11.0)
[2019-01-21 07:59] VITALS: BP 90/48
--- NOTE | 2019-01-21 08:00 | NUR ---
MS RN OPENING NOTES Received Patient awake and resting in bed. A/O x 4. VS stable with no acute distress. Breathing even and unlabored on room air with no respiratory distress. Denies pain at this time. 22g PIV on RIGHT WRIST clean, dry, intact and flushing well. Safety precautions in place. Bed locked and set to lowest position with side rails x 2 up. All needs rendered at this time. Call light within reach. Will continue to monitor.
[2019-01-21 08:08] LABS: CALCIUM, SERUM 8.1 mg/dL (8.5-10.1); CARBON DIOXIDE 25 mmol/L (21-32); CHLORIDE 103 mmol/L (98-107); CREATININE 2.4 mg/dL (0.6-1.3); GLUCOSE 112 mg/dL (74-106); POTASSIUM 3.8 mmol/L (3.5-5.1); SODIUM SERUM 138 mmol/L (136-145); UREA NITROGEN, BLOOD 54 mg/dL (7-18)
[2019-01-21] MEDS: ENTRESTO PO SCH ×2 (09:00→16:23)
[2019-01-21] MEDS: CARVEDILOL 6.25 MG TABLET PO SCH (09:00)
[2019-01-21] MEDS: CLOPIDOGREL BISULFATE 75 MG TABLET PO SCH (09:30)
[2019-01-21] MEDS: ASPIRIN EC 81 MG TABLET.DR PO SCH (09:30)
[2019-01-21] MEDS ORDERED: CEPHALEXIN MONOHYDRATE 250 MG CAPSULE PO SCH (10:00)
[2019-01-21 16:00] VITALS: BP 90/50
--- NOTE | 2019-01-21 17:46 | NUR ---
MS RN NOTES Called and gave report to [facility] from [facility] at this time.
--- NOTE | 2019-01-21 18:50 | NUR ---
MS PRESCHOOL EDUCATION DIRECTOR NOTES Patient discharged for [facility] at this time. Patient in stable condition. VS stable with no acute distress. Breathing even and unlabored on room air with no respiratory distress. Denies pain. Skin intact. Medication reconciliation and discharge orders reviewed and explained to Patient. Patient verbalized understanding. All belongings with Patient. Patient will follow up with cable tower operator, Pavan SPAIN, in 1 week. Escorted Patient the lobby for safety. Patient picked up by Ambulance transport. Addendum: 01/21/19 at 1853 by KEENAN REEDER RN Report given to Vani [employer].
== END 2019-01-21 18:50 | DRG 280 ==
LOC: ER 12:58 → TELE 16:32 → MED 01-19 08:02
PROVIDERS: ADMIT Internal Medicine; ATTEND Nurse Practitioner Acute Care
DX: I13.0 Hypertensive heart and chronic kidney disease with heart failure and stage 1 through stage 4 chronic kidney disease, or unspecified chronic kidney disease (principal); I50.33 Acute on chronic diastolic (congestive) heart failure; I21.A1 Myocardial infarction type 2; E43 Unspecified severe protein-calorie malnutrition; D61.818 Other pancytopenia; N17.9 Acute kidney failure, unspecified; K21.9 Gastro-esophageal reflux disease without esophagitis; I25.10 Atherosclerotic heart disease of native coronary artery without angina pectoris; E11.22 Type 2 diabetes mellitus with diabetic chronic kidney disease; E78.5 Hyperlipidemia, unspecified; F03.90 Unspecified dementia, unspecified severity, without behavioral disturbance, psychotic disturbance, mood disturbance, and anxiety; F32.9 Major depressive disorder, single episode, unspecified; F41.9 Anxiety disorder, unspecified; I25.2 Old myocardial infarction; N18.3 Chronic kidney disease, stage 3 (moderate); Z98.61 Coronary angioplasty status; Z87.891 Personal history of nicotine dependence; Z86.718 Personal history of other venous thrombosis and embolism; Z82.49 Family history of ischemic heart disease and other diseases of the circulatory system; Z79.899 Other long term (current) drug therapy; Z79.82 Long term (current) use of aspirin; Z79.4 Long term (current) use of insulin; Z88.8 Allergy status to other drugs, medicaments and biological substances; Z91.041 Radiographic dye allergy status; Z91.011 Allergy to milk products; Z88.5 Allergy status to narcotic agent; Z91.013 Allergy to seafood; Z79.84 Long term (current) use of oral hypoglycemic drugs; R60.0 Localized edema; I42.9 Cardiomyopathy, unspecified; I70.0 Atherosclerosis of aorta; N28.1 Cyst of kidney, acquired
CPT/HCPCS: 36415; 71045-TC; 76770-TC; 80048-TC; 80053-TC; 80061-TC; 80076-TC; 81000-TC; 82550-TC; 82570-TC; 82728-TC; 82962-TC; 83540-TC; 83735-TC; 83880; 83970; 84100-TC; 84155; 84155-TC; 84165; 84300-TC; 84439-TC; 84443-TC; 84484-TC; 85025-TC; 85730-TC; 87081-TC; 87086-TC; 87186-TC; 93307-TC; 93970-TC; 97110-TC; 97112-TC; 97116-TC; 97530-TC; G0378; J1815; J1940; J3475